=== PATIENT | female | born 1995 | race Caucasian/White ===

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

== ENCOUNTER 2017-06-14 17:38 | Inpatient (IN) | payer OTHER ==
[~2017-06-14] VITALS: Ht 170.2 cm; Wt 75.0 kg
[2017-06-14] VITALS (17 sets, daily range): BP systolic 128–147; BP diastolic 82–102
[~2017-06-14 17:38] MED LIST: PRENCHW PO; ZOFR4TAB3 PO
[2017-06-14] MEDS ORDERED: LR 1,000 ML IV SCH ×2 (17:47→22:15)
[2017-06-14] MEDS ORDERED: OXYTOCIN 30 UNITS IN 0.9% NaCl 500ML IV BAG (J2590) As Ordered ONE (17:56)
[2017-06-14 18:04] LABS: MEAN CORPUSCULAR HEMOGLOBIN 31.9 pg (27.0-33.0); MEAN CORPUSCULAR HGB CONC 34.9 g/dl (32.0-36.5); MEAN CORPUSCULAR VOLUME 91.4 fl (80.0-96.0); RED CELL DISTRIBUTION WIDTH 12.5 % (11.5-14.5); WHITE BLOOD COUNT 12.5 10^3/uL (4.0-10.0)
[2017-06-14 18:21] LABS: CORD GAS ABE A -2.4; CORD GAS ABE V -3.7; CORD GAS HCO3 A 25.1 MEQ/L; CORD GAS HCO3 V 20.5 MEQ/L; CORD GAS O2 SAT A 44.5 %; CORD GAS O2 SAT V 86.1 %; CORD GAS PCO2 A 53.7 mmHg; CORD GAS PCO2 V 34.9 mmHg; CORD GAS PH A 7.288 UNITS; CORD GAS PH V 7.386 UNITS; CORD GAS PO2 A 20.8 mmHg; CORD GAS PO2 V 39.7 mmHg; CORD GAS SBC A 21.2 MEQ/L; CORD GAS SBC V 21.1 MEQ/L; CORD GAS TCO2 A 26.8 MEQ/L; CORD GAS TCO2 V 21.5 MEQ/L
[2017-06-14] MEDS ORDERED: OXYTOCIN DRIP 30 UNITS in APPROPRIATE DILUENT 1 EA IV SCH (19:05)
[2017-06-14] MEDS ORDERED: MEASLES,MUMPS,RUBELLA VACCINE INJ (MMR-II) (90707) SC SCH (19:15)
[2017-06-14] MEDS ORDERED: MOM 30ML SUSPENSION UDC PO PRN (19:15)
[2017-06-14] MEDS ORDERED: OXYTOCIN INJ 10 UNITS/ML VIAL (J2590) IV ONE (19:15)
[2017-06-14] MEDS ORDERED: DIBUCAINE 1% OINTMENT 30GM TOP PRN (19:15)
[2017-06-14] MEDS ORDERED: ANUSOL HC CREAM 30GM TOP PRN (19:15)
[2017-06-14] MEDS ORDERED: METHYLERGONOVINE MALEATE 0.2 MG TAB PO PRN (19:15)
[2017-06-14] MEDS ORDERED: RHOGAM 300 MCG (1500 IU) INJ (J2790) IM SCH (19:15)
[2017-06-14] MEDS ORDERED: LIDOCAINE 1% MDV INJ 50 ML VIAL INFIL ONE (19:15)
[2017-06-14] MEDS ORDERED: DOCUSATE SODIUM 100 MG CAP PO PRN (19:15)
[2017-06-14] MEDS ORDERED: ACETAMINOPHEN 500 MG TAB PO PRN (19:15)
--- NOTE | 2017-06-14 19:33 | HPE ---
DATE OF ADMISSION: 06/14/2017 21-year-old 1, LMP 09/12/2016, EDC 06/19/2017 at 39+ weeks of gestation had spotting and spontaneous rupture of membranes at the registration desk. Fully dilated in imminent delivery. Risk factors is she is a teen SROM and GBS positive, Rh negative. LABORATORY DATA: A negative, HIV negative, hep negative, RPR negative, rubella immune. Varicella immune. GBS positive in urine. Gonorrhea and chlamydia negative. 1-hour glucose was 118. On examination distressed female pushing fully dilated at the time of entering the labor and delivery unit. Imminent delivery is about to happen.
--- NOTE | 2017-06-14 19:35 | DN ---
DATE: 06/14/2017 This lady came in precipitously, delivered a live female weighing 3600 grams, 7 pounds 10 ounces, scores of 9 and 9 at one and five minutes respectively. Cord was around the neck time one, loose. She did have arterial pH 7.28, base excess -2.4, venous pH 7.38, base excess of -3.7. She had local anesthetic with 1% Xylocaine, has sustained a second-degree tear. This was oversewn in the usual fashion. Placenta delivered spontaneously thereafter. Three-vessel, cord membranes and tissues intact. Uterus contracted well down on Pitocin. Examination of the cervix was normal. Anterior posterior lateral evans were normal. Digital examination the sphincter was intact and the repair was completed. The patient and baby tolerating procedure well.
[2017-06-14 21:06] LABS: ALT/SGPT 15 U/L (12-78); AST/SGOT 21 U/L (15-37); BILIRUBIN,TOTAL 0.3 MG/DL (0.2-1.0); CREATININE FOR GFR 0.52 MG/DL (0.55-1.02); URIC ACID 5.3 MG/DL (2.6-6.0)
[2017-06-14] MEDS ORDERED: MAGNESIUM *L&D* 4 GM/100 ML BAG (40MG/ML) (J3475) IV ONE (22:00)
[2017-06-14] MEDS: MAG Sulf (OBGYN) 20GM/500ML 20,000 MG in APPROPRIATE DILUENT 1 EA IV SCH (22:41)
[2017-06-15] VITALS (18 sets, daily range): BP systolic 122–145; BP diastolic 79–97
[2017-06-15 07:02] LABS: MEAN CORPUSCULAR HEMOGLOBIN 31.8 pg (27.0-33.0); MEAN CORPUSCULAR HGB CONC 34.9 g/dl (32.0-36.5); MEAN CORPUSCULAR VOLUME 91.2 fl (80.0-96.0); RED CELL DISTRIBUTION WIDTH 12.5 % (11.5-14.5); WHITE BLOOD COUNT 15.1 10^3/uL (4.0-10.0)
[2017-06-15] MEDS: PRENATAL VITAMINS CHEWABLE TABLET PO SCH (08:08)
[2017-06-15] MEDS: MAG Sulf (OBGYN) 20GM/500ML 20,000 MG in APPROPRIATE DILUENT 1 EA IV SCH (08:08)
[2017-06-15] MEDS: IBUPROFEN 800 MG TAB PO PRN ×2 (08:09→16:37)
[2017-06-15] MEDS ORDERED: LIDOCAINE 1% MDV INJ 50 ML VIAL As Ordered ONE (22:35)
[2017-06-15] MEDS ORDERED: OXYTOCIN INJ 10 UNITS/ML VIAL (J2590) As Ordered ONE (22:35)
[2017-06-16 02:00] VITALS: BP 134/83
[2017-06-16 06:00] VITALS: BP 132/79
[2017-06-16] MEDS: PRENATAL VITAMINS CHEWABLE TABLET PO SCH (09:42)
[2017-06-16] MEDS ORDERED: COLA100C5 PO (10:17)
[2017-06-16] MEDS ORDERED: IBUP-1114 PO (10:17)
[2017-06-16] MEDS ORDERED: ACET50TA PO (10:17)
[2017-06-16 10:23] VITALS: BP 132/78
[2017-06-16 14:48] VITALS: BP 137/94
[2017-06-16 18:16] VITALS: BP 140/96
[2017-06-16 22:00] VITALS: BP 142/92
== END 2017-06-16 22:30 | disposition home or self-care (01) | DRG 774 ==
LOC: M LDI 17:38 → M OBS 06-15 20:45
PROVIDERS: ADMIT Obstetrics & Gynecology; ATTEND Obstetrics & Gynecology
PROC: 10E0XZZ Delivery of Products of Conception, External Approach (ICD-10-PCS; principal; 2017-06-14)
PROC: 0KQM0ZZ Repair Perineum Muscle, Open Approach (ICD-10-PCS; 2017-06-14)
DX: O62.3 Precipitate labor (principal); O14.15 Severe pre-eclampsia, complicating the puerperium; Z3A.39 39 weeks gestation of pregnancy; Z37.0 Single live birth; O99.824 Streptococcus B carrier state complicating childbirth; O69.81X0 Labor and delivery complicated by cord around neck, without compression, not applicable or unspecified; O70.1 Second degree perineal laceration during delivery